=== PATIENT | male | born 1955 | race Caucasian/White ===

== ENCOUNTER 2024-04-17 16:18 | Emergency (ER) | payer OTHER ==
--- OUTSIDE RECORDS SUMMARY | 2024-04-17 16:23 | XMS REPORT | Continuity of Care Document ---
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 DIAGNOSIS Antrum, biopsy: 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 It consists of mitchell biopsy material measuring 0.3 cm. GROSS PERFORMED AT [facility] [place] CONTINUED ON NEXT PAGE RUN DATE: 10/19/20 [facility] PAGE 2 RUN TIME: 1649 Specimen Inquiry RUN USER: INTERFACE SPEC #: [id number] PATIENT: TEN MALAGON #[id number] (Continued) --- MACROSCOPIC (Continued) [place]ITL [place]ARK [address] (P)[phone] MICROSCOPIC All of the stains, including any controls performed, stain appropriately. MICROSCOPIC PERFORMED AT [facility] [address] [place], [place] [address] (p)[phone] PERFORMING SITE Processed at: [facility] [address] [place] [address] ---- Signed SIGNATURE ON FILE Alanis Amador MD 10/19/20 1648 END OF REPORT Novel Coronavirus 03:56:00* Test Item Value Reference Range Interpretation Comme nts Novel Coronavirus 2019 Inhouse (test code = [id number]) Negative Negative Positive resul ts are indicative of the presence fmIYZQ-PoH-6 RNA, clinical correlation with patient historyand other diagnostic information is necessary to determinepatient infection status. Positive results do not rule outbacterial infection or co-infection with other viruses. Negative results do not preclude SARS-CoV-2 infection andshould not be used as the sole basis for patient managementdecisions. Negative results must be combined with otherclinical observations, patient history, and epidemiologicalinformation . Detection of SARS-CoV-2 RNA may be affected bysample collection methods, storage conditions, and/or stageof infection. Viral RNA mutations, vaccinations, antiviraltherapeutics, antibiotics, chemotherapeutic orimmunosuppressant drugs have not been evaluated for effectson detection. Results are for the identification of SARS-CoV-2 RNA usingthe [employer]000 System under the FDA Emergency UseAuthorization. The testing is performed by personneltrained in the procedures for the [employer] Leon M2000 moleculardiagnostic SARS-CoV-2 assay in vitro. SPECIMEN COMMENTS: NCOMMENTS TO COMPRESSOR STATIONS SUPERINTENDENT: Rosemarykobi Coronavirus [id number] 03:56:00* Test Item Value Reference Range Interpretation Comme nts Novel Coronavirus 2019 Inhouse (test code = SLVLA87UQ) Negative Negative Positive resul ts are indicative of the presence chHBPU-NoJ-1 RNA, clinical correlation with patient historyand other diagnostic information is necessary to determinepatient infection status. Positive results do not rule outbacterial infection or co-infection with other viruses. Negative results do not preclude SARS-CoV-2 infection andshould not be used as the sole basis for patient managementdecisions. Negative results must be combined with otherclinical observations, patient history, and epidemiologicalinformation . Detection of SARS-CoV-2 RNA may be affected bysample collection methods, storage conditions, and/or stageof infection. Viral RNA mutations, vaccinations, antiviraltherapeutics, antibiotics, chemotherapeutic orimmunosuppressant drugs have not been evaluated for effectson detection. Results are for the identification of SARS-CoV-2 RNA usingthe [employer] M2000 System under the FDA Emergency UseAuthorization. The testing is performed by personneltrained in the procedures for the [employer] M2000 moleculardiagnostic SARS-CoV-2 assay in vitro. SPECIMEN COMMENTS: NCOMMENTS TO COMPRESSOR STATIONS SUPERINTENDENT: NPROTHROMBIN [id number] 15:19:00* Test Item Value Reference Range Interpretation Comme nts PROTHROMBIN TIME PATIENT (test code = PTP) 10.3 seconds 9.0-14.0 N INTERNATIONAL NORMAL RATIO (test code = INR) 0.9 0.8-1.2 N The therapeutic range for oral anticoagulant therapy formost indications is an international normalized ratio (INR)of between 2.0 and 3.0. The recommended therapeutic INRrange for various clinical situations is listed below: Clinical Situation INR range Pulmonary embolism treatment (2.0-3.0)Venous thrombosis treatmentVenous thrombosis prophylaxis (high risk surgery)Prevention of systemic embolism from: Acute myocardial infarction Valvular heart disease Atrial fibrillation Mechanical prosthetic heart valves (2.5-3.5) IS PATIENT ON ANTICOAGULANTS? NTHROMBOPLASTIN TIME [id number] 15:19:00* Test Item Value Reference Range Interpretation Comme nts THROMBOPLASTIN TIME PARTIAL (test code = PTT) 35.1 seconds 23.0-37.0 N IS PATIENT ON ANTICOAGULANTS? NBASIC METABOLIC [id number] 15:02:00* Test Item Value Reference Range Interpretation Comme nts SODIUM (test code = NA) 142 mmol/L 136-145 N POTASSIUM (test code = K) 4.4 mmol/L 3.5-5.1 N CHLORIDE (test code = CL) 104.0 mmol/L 98-107 N CARBON DIOXIDE (test code = CO2) 30.0 mmol/L 21-32 N ANION GAP (test code = GAP) 12.4 10-20 N GLUCOSE (test code = GLU) 90 mg/dL 74-106 N BLOOD UREA NITROGEN (test code = BUN) 14 mg/dL 7-18 N GLOMERULAR FILTRATION RATE (test code = GFR) > 60 mL/min >=60 Estimated GFR by using Modified MDRD formula.Chronic kidney disease is defined as either kidney damageor GFR <60 mL/min/1.73 m2 for >3 months. CREATININE (test code = CREAT) 1.10 mg/dL 0.7-1.3 N BUN/CREATININE RATIO (test code = BUN/CREA) 13.0 10-20 N CALCIUM (test code = CA) 9.1 mg/dL 8.5-10.1 N HEPATIC FUNCTION [id number] 15:02:00* Test Item Value Reference Range Interpretation Comme nts TOTAL PROTEIN (test code = PROT) 7.7 gram/dL 6.4-8.2 N ALBUMIN (test code = ALB) 3.8 g/dL 3.4-5.0 N GLOBULIN (test code = GLOB) 3.9 gram/dL 2.7-4.2 N ALBUMIN/GLOBULIN RATIO (test code = A/G) 1.0 0.75-1.50 N BILIRUBIN TOTAL (test code = BILT) 0.50 mg/dL 0.0-1.0 N BILIRUBIN DIRECT (test code = BILD) 0.17 mg/dL 0.0-0.20 N SGOT/AST (test code = AST) 25 IUnit/L 15-37 N SGPT/ALT (test code = ALT) 39 IUnit/L 12-78 N ALKALINE PHOSPHATASE TOTAL (test code = ALKP) 100 IUnit/L 45-117 N Note change in reference range due to change in reagent. CBC W/AUTO [id number] 15:00:00* Test Item Value Reference Range Interpretation Comme nts WHITE BLOOD CELL (test code = WBC) 10.1 K/mm3 4.5-12.5 N RED BLOOD CELL (test code = RBC) 5.10 mill/mm3 4.0-5.8 N HEMOGLOBIN (test code = HGB) 15.9 gram/dL 13.0-17.5 N HEMATOCRIT (test code = HCT) 48.3 % 42.0-52.0 N MEAN CELL VOLUME (test code = MCV) 94.7 fL 80-98 N MEAN CELL HGB (test code = MCH) 31.2 picogram 27.0-33.0 N MEAN CELL HGB CONCETRATION (test code = MCHC) 32.9 gram/dL 33.0-36.0 L RED CELL DISTRIBUTION WIDTH (test code = RDW) 13.1 % 11.6-16.2 N RED CELL DISTRIBUTION WIDTH SD (test code = RDW-SD) 45.2 fL 37.0-51.0 N PLATELET COUNT (test code = PLT) 306 K/mm3 150-450 N MEAN PLATELET VOLUME (test c ode = MPV) 8.4 fL 6.7-11.0 N NEUTROPHIL % (test code = NT%) 60.1 % 39.0-69.0 N IMMATURE GRANULOCYTE % (test code = IG%) 0.7 % 0.0-5.0 N LYMPHOCYTE % (test code = LY%) 27.6 % 25.0-55.0 N MONOCYTE % (test code = MO%) 9.5 % 0.0-10.0 N EOSINOPHIL % (test code = EO%) 1.7 % 0.0-5.0 N BASOPHIL % (test code = BA%) 0.4 % 0.0-1.0 N NUCLEATED RBC % (test code = NRBC%) 0.0 % 0-0 N NEUTROPHIL # (test code = NT#) 6.08 K/mm3 1.8-7.7 N IMMATURE GRANULOCYTE # (test code = IG#) 0.07 x10 3/uL 0-0.03 H LYMPHOCYTE # (test code = LY#) 2.79 K/mm3 1.0-5.0 N MONOCYTE # (test code = MO#) 0.96 K/mm3 0-0.8 H EOSINOPHIL # (test code = EO#) 0.17 K/mm3 0.0-0.5 N BASOPHIL # (test code = BA#) 0.04 K/mm3 0.0-0.2 N NUCLEATED RBC # (test code = NRBC#) 0.00 K/mm3 0.0-0.1 N MANUAL DIFF REQUIRED (test c ode = MDIFF) NO BASIC METABOLIC [id number] 14:56:00* Test Item Value Reference Range Interpretation Comme nts SODIUM (test code = NA) 142 mmol/L 136-145 N POTASSIUM (test code = K) 4.4 mmol/L 3.5-5.1 N CHLORIDE (test code = CL) 104.0 mmol/L 98-107 N CARBON DIOXIDE (test code = CO2) mmol/L 21-32 ANION GAP (test code = GAP) 10-20 GLUCOSE (test code = GLU) mg/dL 74-106 BLOOD UREA NITROGEN (test co de = BUN) mg/dL 7-18 GLOMERULAR FILTRATION RATE ( test code = GFR) mL/min >=60 CREATININE (test code = CREAT) mg/dL 0.7-1.3 BUN/CREATININE RATIO (test c ode = BUN/CREA) 10-20 CALCIUM (test code = CA) mg/dL 8.5-10.1 HEPATIC FUNCTION [id number] 14:56:00* Test Item Value Reference Range Interpretation Comme nts TOTAL PROTEIN (test code = PROT) gram/dL 6.4-8.2 ALBUMIN (test code = ALB) g/dL 3.4-5.0 GLOBULIN (test code = GLOB) gram/dL 2.7-4.2 ALBUMIN/GLOBULIN RATIO (test code = A/G) 0.75-1.50 BILIRUBIN TOTAL (test code = BILT) mg/dL 0.0-1.0 BILIRUBIN DIRECT (test code = BILD) mg/dL 0.0-0.20 SGOT/AST (test code = AST) IUnit/L 15-37 SGPT/ALT (test code = ALT) IUnit/L 12-78 ALKALINE PHOSPHATASE TOTAL ( test code = ALKP) IUnit/L 45-117 Notes Date/Time Note Provider Source 2020-10-18 07:39:00 [id number] [facility] PATIENT NAME: TEN MALAGON ADMIT DATE: ACCOUNT NO: [id number] ROOM NO: AGE: 65 REPORT TYPE: ENDOSCOPY REPORT SEX: M DATE OF : [birth year]ADMITTING PHYSICIAN: ATTENDING PHYSICIAN:Alfonso Oneill MD Patient Name: Ten Malagon Attending MD: Alfonso Oneill , Procedure Date: 10/18/2020 7:39 AM Number: [id number] Date of : 1955 Procedure: Upper GI endoscopyPre Procedure Diagnosis: Functional Dyspepsia and Hx of Hep CAssistants: Alfonso Hemphillesthesia: Monitored Anesthesia Care Procedure: Pre-Anesthesia Assessment: - Prior to the procedure, a History and Physical was performed, and patient medications and allergies were reviewed. The patient's tolerance of previous anesthesia was also reviewed. The risks and benefits of the procedure and the sedation options and risks were discussed with the patient. All questions were answered, and informed consent was obtained. Prior Anticoagulants: The patient has taken no previous anticoagulant or antiplatelet agents. ASA Grade Assessment: II - A patient with mild systemic disease. After reviewing the risks and benefits, the patient was deemed in satisfactory condition to undergo the procedure. The benefits, risks, and alternatives to the procedure were discussed and informed consent was obtained from the patient. I've assesed the patient on this date and reviewed the medical history, drug history, and previous anesthesia experience. After obtaining informed consent, the scope was passed under direct vision. Throughout the procedure, the patient's blood pressure, pulse, and oxygen saturations were monitored continuously.s were monitored continuously. The Endoscope was introduced through the mouth, and advanced to the second part of duodenum. The upper GI endoscopy was accomplished without difficulty. The patient tolerated the procedure well.Post Procedure Findings: A medium-sized hiatal hernia was present. Localized mild inflammation characterized by erythema was found on the anterior wall of the gastric antrum. Biopsies were taken with a cold PATIENT NAME: TEN MALAGON forceps for histology. Biopsies were taken with a cold forceps for histology.Complications: No immediate complications.Estimated Blood Loss: Estimated blood loss: none.Post Procedure Diagnosis: - Medium-sized hiatal hernia. - Acute gastritis. Biopsied. -hx of Hep CRecommendation: - Await pathology results. - Use Prilosec OTC 20 mg PO daily. -outpt treatment of Hep C - Return to my office in 3 weeks. Alfonso Oneill, 10/18/2020 8:09:15 AMThis report has been signed electronically.Number of Addenda: 0 Note Initiated On: 10/18/2020 7:39 AMProcedure Code(s): --- Professional --- 88718, Esophagogastroduodenoscopy, flexible, transoral; with biopsy, single or multipleDiagnosis Code(s): --- Professional --- K44.9, Diaphragmatic hernia without obstruction or gangrene K29.00, Acute gastritis without bleeding K30, Functional dyspepsia CPT copyright 2018 [employer]. All rights reserved. The codes documented in this report are preliminary and upon pediatric sports medicine specialist review may be revised to meet current compliance requirements.Scope In:Scope Out:Provation {[id number]}.pdf ProVation FT PDF at 0809 PATIENT NAME: TEN MALAGON [id number] ilable for patient [id number]:09:49 [facility]
[2024-04-17 17:03] LABS: Absolute Basophils 0.1 K/uL (0-0.5); Absolute Eosinophils 0.1 K/uL (0-0.5); Absolute Lymphocytes (CBC) 2.9 K/uL (0.7-4.9); Absolute Monocytes 0.8 K/uL (0.1-1.3); Eosinophils % 1.1 % (0-4.4); Hematocrit 44.6 % (39.6-49.0); Hemoglobin 15.2 g/dL (13.6-17.9); Lymphocytes % 29.6 % (15.3-44.8); MCH 31.4 pg (27.0-35.0); MCHC 34.2 g/dL (32.0-36.0); Monocytes % 7.9 % (3.3-12.3); Neutrophils % 60.4 % (41.7-73.7); Nucleated Red Blood Cells % 0.1 % (0-0); Platelets 359 thou/uL (152-406); RBC Red Blood Cell Count 4.85 M/uL (4.33-5.43); Red Cell Distribution Width 13.5 % (12.1-15.2)
[2024-04-17 17:04] LABS: PT Prothrombin Time 10.8 SECONDS (9.4-12.5); PTT, Activated Partial Thromb 31.7 SECONDS (24.3-36.9); Protime INR 0.98
[2024-04-17 17:09] LABS: Specific Gravity 1.029 (1.005-1.030); Sqamous Epithelial None Seen /HPF (None Seen); Urine Bacteria None Seen /HPF (<20); Urine Bilirubin NEGATIVE (Negative); Urine Blood 2+ (Negative); Urine Clarity Turbid (Clear); Urine Color Yellow (Yellow); Urine Crystals Unidentified Few /HPF (None Seen); Urine Culture Reflex Order NOT NEEDED; Urine Glucose NEGATIVE (Negative); Urine Ketones TRACE (Negative); Urine Microscopic Reflex YN ORDER UMIC; Urine Mucus 2+ /HPF (None Seen); Urine Nitrite NEGATIVE (Negative); Urine Protein 1+ (Negative); Urine RBC >50 /HPF (None Seen); Urine Urobilinogen 1+ (Normal); Urine WBC <5 /HPF (<5)
[2024-04-17 17:10] LABS: Barbiturates NEGATIVE (NEGATIVE); Benzodiazepines NEGATIVE (NEGATIVE); Cocaine NEGATIVE (NEGATIVE); METHAMPHETAM NEGATIVE (NEGATIVE); Methadone NEGATIVE (NEGATIVE); Opiates NEGATIVE (NEGATIVE); Phencyclidine NEGATIVE (NEGATIVE); THC Cannibis NEGATIVE (NEGATIVE)
[2024-04-17 17:30] LABS: ALT/SGPT 28 U/L (16-61); AST/SGOT 16 U/L (15-37); Albumin 3.7 g/dL (3.4-5.0); Alkaline Phosphatase 92 U/L (45-117); Anion Gap 8.9 mEq/L (5.0-15.0); BUN Blood Urea Nitrogen 18 mg/dL (7-18); Bicarbonate 25 mEq/L (21-32); Bilirubin Direct 0.2 mg/dL (0-0.2); Bilirubin Indirect, Calculated 0.4 mg/dL (0.2-0.8); Bilirubin Total 0.6 mg/dL (0.2-1.0); Globulin 3.8 g/dL (2.3-3.5); Glomerular Filtration Rate 68 ml/min (=/>90); Glucose Level 101 mg/dL (74-106); Potassium 3.9 mEq/L (3.5-5.1); Protein, Total 7.5 g/dL (6.4-8.2); Sodium Level 142 mEq/L (136-145)
--- NOTE | 2024-04-17 19:59 | ER ---
Nurse's Notes [facility] Name: Sree López Age: 69 yrs Sex: Male : 1955 Arrival Date: 04/17/2024 Time: 16:18 Bed 15 Private MD: Diagnosis: Suicidal ideations Presentation: 04/17 16:20 Chief complaint: EMS states: "toned out for sucidical ideations and wants to be checked mb9 out. He's been having a hard time lately and says [place].". Coronavirus screen: At this time, the client does not indicate any symptoms associated with coronavirus-19. Ebola Screen: No symptoms or risks identified at this time. Initial Sepsis Screen: Does the patient meet any 2 criteria? No. Patient's initial sepsis screen is negative. Does the patient have a suspected source of infection? No. Patient's initial sepsis screen is negative. Risk Assessment: Do you want to hurt yourself or someone else? Patient reports desire/thoughts of hurting themselves or someone else. Provider notified. Onset of symptoms was April 17, 2024. 16:20 Acuity: SANDI 2 mb9 16:20 Method Of Arrival: EMS: [facility] mb9 Triage Assessment: 16:20 General: Appears in no apparent distress. Behavior is anxious. Pain: Denies pain. EENT: mb9 No signs and/or symptoms were reported regarding the EENT system. Neuro: Herring Agitation-Sedation Scale (RASS): 0 - Alert and Calm Level of Consciousness is awake, alert, obeys commands, Oriented to person, place, time, situation, Appropriate for age. Cardiovascular: Patient's skin is warm and dry. Respiratory: Airway is patent Respiratory effort is even, unlabored, Respiratory pattern is regular, symmetrical. GI: No signs and/or symptoms were reported involving the gastrointestinal system. : No signs and/or symptoms were reported regarding the genitourinary system. Derm: Skin is pink, warm \\T\\ dry. Musculoskeletal: Range of motion: intact in all extremities. Historical: - Allergies: 16:22 No Known Allergies; mb9 - Home Meds: 16:22 gabapentin oral [Active]; mb9 - PMHx: 16:22 neuropathy; Hypercholesterolemia; mb9 - PSHx: 16:22 neck; mb9 - Immunization history:: Adult Immunizations up to date. - Infectious Disease History:: Denies. - Social history:: Smoking status: Patient denies any tobacco usage or history of. - Family history:: not pertinent. Screenin:31 [facility] ED Fall Risk Assessment (Adult) History of falling in the last 3 months, mb9 including since admission No falls in past 3 months (0 pts) Confusion or Disorientation No (0 pts) Intoxicated or Sedated No (0 pts) Impaired Gait No (0 pts) Mobility Assist Device Used No (0 pt) Altered Elimination No (0 pt) Score/Fall Risk Level 0 - 2 = Low Risk Oriented to surroundings, Maintained a safe environment, Educated pt \\T\\ family on fall prevention, incl call for assistance when getting out of bed. Abuse screen: Denies threats or abuse. Nutritional screening: No deficits noted. Tuberculosis screening: No symptoms or risk factors identified. Assessment: 16:20 Reassessment: SI precautions in place. Sitter at bedside. See C-SSRS risk assessment mb9 packet for further information. 17:20 Reassessment: Pt given finger food. SI precautions in place. Sitter at bedside. mb9 Respirations are even and unlabored. 18:20 Reassessment: Pt given finger food. SI precautions in place. Sitter at bedside. mb9 Respirations are even and unlabored. 18:54 Reassessment: Pt states, "I wanna get out of here and do this the easy way. I'm about mb9 to leave." Charge nurse, Tiffani, and ERP notified. 19:07 General: Assumed care of patient at this time. Pt is resting on stretcher calmly with pc2 eyes open. Room is free of ligature. No needs voiced at this time. SI precautions in place and sitter at bedside.. 19:21 General: Appears in no apparent distress. unkempt, Behavior is quiet. Neuro: Oriented pc2 to person, place, time, situation, Gait is steady. Cardiovascular: Patient's skin is warm and dry. Respiratory: Airway is patent Respiratory effort is even, unlabored, Respiratory pattern is regular. 20:50 Reassessment: Patient and/or family updated on plan of care and expected duration. Pain pc2 level reassessed. Patient is alert, oriented x 3, equal unlabored respirations, skin warm/dry/pink. Patient is resting quietly on stretcher with eyes closed. Resp even and unlabored. NAD noted. Monitoring ongoing. 22:01 General: Nurse to nurse given.. pc2 22:05 Reassessment: Patient appears in no apparent distress at this time. Patient and/or pc2 family updated on plan of care and expected duration. Pain level reassessed. 23:03 General: Pt ambulating to restroom with steady gait. Denies any other needs at this pc2 time.. 23:20 General: Report given to EMS at bedside.. pc2 Psych: 16:20 Benedict Suicide Severity Screening: In the past month, have you wished you were mb9 or wished you could go to sleep and not wake up? Patient responds "yes." Based off the client's responses additional C-SSRS screening is required. "In the past month, have you actually had any thoughts of killing yourself?" Patient responds "yes." Based off the client's response additional Benedict suicide severity screening questions to be further documented on paper forms. "In your lifetime, have you ever done anything, started to do anything, or prepared to do anything to end your life?" Patient responds "yes." Patient reports suicidal intent within 3 past months. Safety Checks: Personal items have been removed. Door is open. No visitors are present at this time. 16:20 Subjective: Patient's mood is irritable, Delusions are denied, Hallucinations are mb9 denied Having thoughts of suicide. Objective: Patient is cooperative, Speech is normal, Affect is flat. Interventions: Removed personal items and placed in bag. Patient placed in hospital gown. Searched person for dangerous items. Urine collected and sent for urine drug test. Belonging list filled out. Pt denies substance abuse. Commitment: Patient will be a voluntary commitment. Vital Signs: 16:20 Pain 0/10; mb9 16:29 BP 133 / 88; Pulse 79; Resp 18; Temp 98; Pulse Ox 100% ; Weight 99.79 kg; Height 6 ft. mb9 1 in. ; 23:12 BP 115 / 74; Pulse 86; Resp 16; Temp 97.8(O); Pulse Ox 100% on R/A; pc2 16:29 Body Mass Index 29.03 (99.79 kg, 185.42 cm) mb9 16:20 Pain Scale: Adult mb9 ED Course: 16:20 Patient arrived in ED. mb9 16:20 Latesha sEtevez, RN is Primary Nurse. mb9 16:21 Triage completed. 9 16:22 Arm band placed on. mb9 16:23 Francisca Wilson FNP-C is PHCP. kb 16:23 Jacob Daly MD is Attending Physician. kb 16:31 Patient has correct armband on for positive identification. Provided Education on: ER mb9 process. 16:32 No provider procedures requiring assistance completed. mb9 17:07 Initial lab(s) drawn, by ia, sent to lab. EKG done, by ED staff, reviewed by Jacob Daly MD. Inserted saline lock: 20 gauge in right antecubital area, using aseptic technique. Blood collected. 19:40 Diet: Patient given a regular meal tray. Patient given snack. Patient given juice. pc2 Patient given water. Tolerated well. 21:16 Initiated contact with Diana \\T\\2115. [facility] 23:19 Pt accepted to [facility] \\T\\2129. Accepting \\T\\2129. Admin approval given by darleen Londono. [facility] to transfer pt. 23:22 IV discontinued, intact, bleeding controlled, No redness/swelling at site. Pressure pc2 dressing applied. Administered Medications: No medications were administered Medication: 16:32 VIS not applicable for this client. 9 Outcome: 19:59 ER care complete, transfer ordered by . rt 23:21 Transferred by ground EMS [facility] ambulance. to other acute care facility: [facility]. pc2 Transfer form completed. X-rays sent w/ patient. 23:21 Condition: stable 23:21 Instructed on the need for transfer, Demonstrated understanding of instructions, 23:24 Patient left the ED. pc2 Signatures: Francisca Wilson FNP-C FNP-Ckb Breneman, Mary Beth, RN RN Jacob Leal MD MD rt Margoth Taveras [facility] Yany lopez, RN RN pc2 Corrections: (The following items were deleted from the chart) 19:11 19:07 General: Assumed care of patient at this time. Pt is resting on stretcher calmly pc2 with eyes open. Room is free of ligature. No needs voiced at this time.. pc2 23:23 22:01 General: Nurse to nurse given.. pc2 pc2
--- NOTE | 2024-04-17 19:59 | EDPHYS ---
Physician Documentation [facility] Name: Sree López Age: 69 yrs Sex: Male : 1955 Arrival Date: 04/17/2024 Time: 16:18 Bed 15 Private MD: ED Physician Jacob Daly HPI: 04/17 19:40 This 69 yrs old Male presents to ER via EMS with complaints of Suicidal Ideation. rt 19:40 Patient presents to the ED with suicidal ideation, states that he has a plan to walk rt into traffic. Denies homicidal ideation, physical symptoms. Denies other acute complaints at this time, symptoms are moderate in severity, no other aggravating or alleviating factors.. Historical: - Allergies: 16:22 No Known Allergies; mb9 - Home Meds: 16:22 gabapentin oral [Active]; mb9 - PMHx: 16:22 neuropathy; Hypercholesterolemia; mb9 - PSHx: 16:22 neck; mb9 - Immunization history:: Adult Immunizations up to date. - Infectious Disease History:: Denies. - Social history:: Smoking status: Patient denies any tobacco usage or history of. - Family history:: not pertinent. ROS: 19:40 Constitutional: Negative for fever, chills, and weight loss, Cardiovascular: Negative rt for chest pain, palpitations, and edema, Respiratory: Negative for shortness of breath, cough, wheezing, and pleuritic chest pain, Abdomen/GI: Negative for abdominal pain, nausea, vomiting, diarrhea, and constipation, MS/Extremity: Negative for injury and deformity, Skin: Negative for injury, rash, and discoloration, Neuro: Negative for headache, weakness, numbness, tingling, and seizure, 19:40 Psych: Positive for suicide gesture, Exam: 19:40 Constitutional: This is a well developed, well nourished patient who is awake, alert, rt and in no acute distress. Head/Face: Normocephalic, atraumatic. Chest/axilla: Normal chest wall appearance and motion. Nontender with no deformity. No lesions are appreciated. Cardiovascular: Regular rate and rhythm with a normal S1 and S2. No gallops, murmurs, or rubs. Normal PMI, no JVD. No pulse deficits. Respiratory: Lungs have equal breath sounds bilaterally, clear to auscultation and percussion. No rales, rhonchi or wheezes noted. No increased work of breathing, no retractions or nasal flaring. Abdomen/GI: Soft, non-tender, with normal bowel sounds. No distension or tympany. No guarding or rebound. No evidence of tenderness throughout. Skin: Warm, dry with normal turgor. Normal color with no rashes, no lesions, and no evidence of cellulitis. MS/ Extremity: Pulses equal, no cyanosis. Neurovascular intact. Full, normal range of motion. Neuro: Awake and alert, GCS 15, oriented to person, place, time, and situation. Cranial nerves II-XII grossly intact. Motor strength 5/5 in all extremities. Sensory grossly intact. Cerebellar exam normal. Normal gait. 19:40 ECG was reviewed by the Attending Physician. 19:40 Psych: Mood depressed, reports SI. 19:46 ECG was reviewed by the Attending Physician. rt Vital Signs: 16:20 Pain 0/10; mb9 16:29 BP 133 / 88; Pulse 79; Resp 18; Temp 98; Pulse Ox 100% ; Weight 99.79 kg; Height 6 ft. mb9 1 in. ; 23:12 BP 115 / 74; Pulse 86; Resp 16; Temp 97.8(O); Pulse Ox 100% on R/A; pc2 16:29 Body Mass Index 29.03 (99.79 kg, 185.42 cm) mb9 16:20 Pain Scale: Adult mb9 MDM: 16:23 Patient medically screened. kb 19:40 Differential diagnosis: Suicidal ideation. Data reviewed: vital signs, nurses notes, rt lab test result(s). Care significantly affected by the following chronic conditions: Neuropathy. Counseling: I had a detailed discussion with the patient and/or guardian regarding the historical points, exam findings, and any diagnostic results supporting the discharge/admit diagnosis, lab results, the need to transfer to another facility. 04/17 16:24 Order name: Acetaminophen; Complete Time: 18:53 kb 04/17 16:24 Order name: Basic Metabolic Panel; Complete Time: 18:53 kb 04/17 16:24 Order name: CBC with Diff; Complete Time: 18:53 kb 04/17 16:24 Order name: ETOH Level; Complete Time: 18:53 kb 04/17 16:24 Order name: Hepatic Function; Complete Time: 18:53 kb 04/17 16:24 Order name: PT-INR; Complete Time: 18:53 kb 04/17 16:24 Order name: Ptt, Activated; Complete Time: 18:53 kb 04/17 16:24 Order name: Salicylate; Complete Time: 18:53 kb 04/17 16:24 Order name: Urinalysis w/ reflexes; Complete Time: 18:53 kb 04/17 16:24 Order name: Urine Drug Screen; Complete Time: 18:53 kb 04/17 16:24 Order name: EKG; Complete Time: 16:24 kb 04/17 16:24 Order name: EKG - Nurse/Tech; Complete Time: 17:08 kb 04/17 16:24 Order name: IV Saline Lock; Complete Time: 17:08 kb 04/17 16:24 Order name: Labs collected and sent; Complete Time: 17:08 kb 04/17 16:24 Order name: Suicide Precautions; Complete Time: 17:08 kb 04/17 16:24 Order name: Suicide Screening ([place]); Complete Time: 17:08 kb EC:46 Rate is 74 beats/min. Rhythm is regular, Normal Sinus Rhythm with No ectopy. QRS [place] rt is Normal. [place] interval is normal. QRS interval is normal. QT interval is normal. No Q waves. T waves are Normal. No ST changes noted. Interpreted by me. Administered Medications: No medications were administered Disposition Summary: 04/17/24 19:59 Transfer Ordered Notes: Transfer Location: [facility] Facility rt Reason: Higher level of care rt Condition: Stable rt Problem: new rt Symptoms: are unchanged rt Accepting Physician: (04/17/24 23:24) pc2 Diagnosis - Suicidal ideations rt Discharge Instructions: - Discharge Summary Sheet kmf Forms: - Medication Reconciliation Form kmf - SBAR form kmf Signatures: Dispatcher [employer] EDMS Francisca Wilson FNP-C FNP-Latesha Thorne RN RN mb9 Jacob Daly MD MD rt Yany lopez, RN RN pc2 Corrections: (The following items were deleted from the chart) 18:49 16:24 Test, Urine+UC.LAB.BRZ ordered. EDMS EDMS 19:47 19:40 Rate is 89 beats/min. Rhythm is regular, Normal Sinus Rhythm with Left bundle rt branch block. QRS [place] is Normal. [place] interval is normal. QT interval is normal. No Q waves. rt 23:24 19:59 rt pc2
[2024-04-17 23:40] VITALS: BP 115/74; TEMP 97.8; O2SAT 100
--- NOTE | 2024-04-19 14:10 | EKG ---
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
== END 2024-04-17 23:24 ==
LOC: ER 16:18
DX: R45.851 Suicidal ideations (principal); E78.00 Pure hypercholesterolemia, unspecified
CPT/HCPCS: 36415; 80048; 80076; 80143; 80179; 80307; 81001; 82077; 85025; 85610; 85730; 93005; 99285